=== PATIENT | male | born 2000 | race Two or more races ===

== ENCOUNTER 2024-03-02 01:55 | Inpatient (IN) | payer OTHER ==
[2024-03-02] VITALS (13 sets, daily range): BP systolic 102–133; BP diastolic 64–86; PULSE 65–100; RESP 17–18; TEMP 97.6–98.1; O2SAT 97–100
[~2024-03-02] VITALS: Ht 182.9 cm; Wt 72.6 kg
[2024-03-02] MEDS ORDERED: OLANZapine 5 MG RAPDIS TABLET PO PRN (02:30)
[2024-03-02] MEDS ORDERED: LORazepam 2 MG TABLET PO PRN (02:30)
[2024-03-02] MEDS ORDERED: ZOLPIDEM TARTRATE 10 MG TABLET PO PRN (02:30)
[2024-03-02 08:54] LABS: APPEARANCE,URINE CLEAR (CLEAR); BILIRUBIN,URINE NEGATIVE (NEGATIVE); COLOR,URINE LIGHT YELLOW (YELLOW); GLUCOSE, URINE (UA) NEGATIVE (NEGATIVE); KETONES,URINE NEGATIVE (NEGATIVE); LEUKOCYTE ESTERASE ,URINE NEGATIVE (NEGATIVE); NITRATE,URINE NEGATIVE (NEGATIVE); OCCULT BLOOD,URINE NEGATIVE (NEGATIVE); PH,URINE 5.5 (5.0-8.0); PH,URINE DRUG SCREEN 5.5 (5.0-8.0); PROTEIN,URINE NEGATIVE (NEGATIVE); SPECIFIC GRAVITIY, URINE 1.022 (1.003-1.030); UROBILINOGEN,URINE <=1.0 mg/dL (<=1.0)
[2024-03-02 09:10] LABS: ALCOHOL, URINE DRUG SCREEN NEGATIVE (NEGATIVE); AMPHET/METH SCREEN,URINE NEGATIVE (NEGATIVE); BARBITURATE SCREEN, URINE NEGATIVE (NEGATIVE); BENZODIAZEPINES SCREEN,URINE POSITIVE (NEGATIVE); CANNABINOID SCREEN,URINE NEGATIVE (NEGATIVE); COCAINE SCREEN,URINE POSITIVE (NEGATIVE); METHADONE SCREEN, URINE NEGATIVE (NEGATIVE); OPIATE SCREEN,URINE NEGATIVE (NEGATIVE); PHENCYCLIDINE SCREEN,URINE NEGATIVE (NEGATIVE)
[2024-03-02] MEDS ORDERED: LOPERAMIDE HCL 2 MG CAPSULE PO PRN (12:15)
[2024-03-02] MEDS ORDERED: HydrOXYzine PAMOATE 50 MG CAPSULE PO PRN (12:15)
[2024-03-02] MEDS ORDERED: GuaiFENesin/D-METHORPHAN [SUGAR-FREE] 200-20MG/10 ML SYRUP UDCUP PO PRN (12:15)
[2024-03-02] MEDS ORDERED: DIAZEPAM 10 MG TABLET PO PRN (12:15)
[2024-03-02] MEDS: CYANOCOBALAMIN 1,000 MCG/ML VIAL IM ONE (12:52)
[2024-03-02] MEDS: GABAPENTIN 300 MG CAPSULE PO SCH (12:53)
[2024-03-02] MEDS: THIAMINE 100 MG TABLET PO SCH (16:27)
[2024-03-02] MEDS: MELATONIN 5 MG TABLET PO SCH (20:30)
[2024-03-02] MEDS: MIRTAZAPINE 15 MG TABLET PO SCH (20:30)
[2024-03-02] MEDS: PRAZOSIN HCL 1 MG CAPSULE PO SCH (20:30)
[2024-03-03 02:30] VITALS: BP 105/65; PULSE 82; RESP 18; TEMP 97.6; O2SAT 98
[2024-03-03 06:30] VITALS: BP 118/69; PULSE 100; RESP 18; TEMP 97.7; O2SAT 100
[2024-03-03] MEDS ORDERED: LORazepam 2 MG TABLET PO PRN (07:00)
[2024-03-03] MEDS ORDERED: DIAZEPAM 10 MG TABLET PO PRN (07:00)
[2024-03-03] MEDS ORDERED: LORazepam 2 MG TABLET PO SCH (09:00)
[2024-03-03] MEDS: OMEGA-3/DHA/EPA/FISH OIL 1,000 MG CAPSULE PO SCH (09:03)
[2024-03-03] MEDS: FOLIC ACID 1 MG TABLET PO SCH (09:04)
[2024-03-03] MEDS: NALTREXONE HCL 50 MG TABLET PO SCH (09:04)
[2024-03-03] MEDS: MULTIVITAMINS WITH MINERALS, THERAPEUTIC TABLET PO SCH (09:04)
[2024-03-03] MEDS: DIAZEPAM 10 MG TABLET PO SCH (09:04)
[2024-03-03 09:05] VITALS: BP 117/66; PULSE 84; RESP 17; TEMP 97.7; O2SAT 99
[2024-03-03 09:52] LABS: BASOPHILS % (AUTO) 0.4 % (0.0-2.0); EOSINOPHILS % (AUTO) 5.3 % (1.0-6.0); HEMATOCRIT 39.5 % (41-53); LYMPHOCYTES # (AUTO) 1.1 K/uL (1.0-4.8); LYMPHOCYTES % (AUTO) 20.6 % (22.0-44.0); MEAN CORPUSCULAR HEMOGLOBIN 27.7 pg (26.0-34.0); MEAN CORPUSCULAR HGB CONC 32.9 G/dL (31.0-37.0); MEAN CORPUSCULAR VOLUME 84 fL (80-100); MONOCYTES # (AUTO) 0.6 K/uL (0.1-1.0); MONOCYTES % (AUTO) 11.3 % (2.0-9.0); NEUTROPHILS # (AUTO) 3.2 K/uL (1.8-7.7); NEUTROPHILS % (AUTO) 62.4 % (40.0-70.0); PLATELET COUNT (AUTO) 298 K/uL (150-450); RED BLOOD CELL COUNT(AUTO) 4.69 MIL/uL (4.50-5.90); RED CELL DISTRIBUTION WIDTH 13.2 % (11.5-14.5); WHITE BLOOD COUNT (AUTO) 5.2 K/uL (4.5-11.0)
[2024-03-03 10:22] VITALS: BP 117/66; PULSE 84; RESP 17; TEMP 97.7; O2SAT 99
[2024-03-03 10:49] LABS: ALANINE AMINOTRANSFERASE 19 U/L (12-78); ALBUMIN 3.2 g/dL (3.4-5.0); ALKALINE PHOSPHATASE 116 U/L (46-116); ANION GAP 3 mmol/L (8-16); ASPARTATE AMINOTRANSFERASE 23 U/L (15-37); BILIRUBIN,TOTAL 0.3 mg/dL (0.1-1.0); CALCIUM, TOTAL 9.1 mg/dL (8.8-10.5); CARBON DIOXIDE 33 mmol/L (22-29); CHLORIDE 103 mmol/L (98-107); CHOL/HDL RATIO 3.6 (4.2-7.3); CHOLESTEROL 174 mg/dL (131-200); CREATININE 0.93 mg/dL (0.60-1.30); FREE T4 (FREE THYROXINE) 0.63 ng/dL (0.76-1.46); GLOMERULAR FILTR. RATE CALC > 60 mL/min (>60); GLUCOSE,RANDOM 73 mg/dL (70-110); HDL CHOLESTEROL 48 mg/dL (40-60); LDL CHOL (CALC.) 102 mg/dL (0-130); POTASSIUM 4.4 mmol/L (3.5-5.1); SODIUM SERUM 139 mmol/L (136-145); T4 (THYROXINE) 5.4 mcg/dL (4.7-13.3); THYROID STIMULATING HORMONE 1.99 uIU/mL (0.36-3.74); TOTAL PROTEIN, SERUM 7.6 g/dL (6.4-8.2); TRIGLYCERIDES 122 mg/dL (15-150); UREA NITROGEN, BLOOD 15 mg/dL (7-18)
[2024-03-03 13:22] VITALS: BP 106/70; RESP 17; O2SAT 99
[2024-03-03 20:23] VITALS: BP 128/74; PULSE 83; RESP 17; TEMP 98.4; O2SAT 99
[2024-03-04 09:01] VITALS: BP 143/82; PULSE 85; RESP 18; TEMP 97.7; O2SAT 100
[2024-03-04] MEDS ORDERED: MIRT-89 PO (14:24)
[2024-03-04] MEDS ORDERED: PRAZ1 PO (14:24)
[2024-03-04] MEDS ORDERED: GABA-1181 PO (14:24)
[2024-03-04] MEDS ORDERED: NALT50TA33 PO (14:24)
[2024-03-04] MEDS ORDERED: MELA5TAB40 PO (14:24)
[2024-03-05] MEDS ORDERED: DIAZEPAM 5 MG TABLET PO PRN (07:00)
[2024-03-05] MEDS ORDERED: LORazepam 1 MG TABLET PO PRN (07:00)
[2024-03-05] MEDS ORDERED: DIAZEPAM 5 MG TABLET PO SCH (09:00)
[2024-03-05] MEDS ORDERED: LORazepam 1 MG TABLET PO SCH (09:00)
[2024-03-06] MEDS ORDERED: DIAZEPAM 5 MG TABLET PO PRN (07:00)
[2024-03-06] MEDS ORDERED: LORazepam 1 MG TABLET PO PRN (07:00)
== END 2024-03-04 17:44 | disposition home or self-care (01) | DRG 885 ==
LOC: B2S 02:44
PROVIDERS: ADMIT Psychiatry & Neurology Psychiatry; ATTEND Psychiatry & Neurology Psychiatry
PROC: GZHZZZZ Group Psychotherapy (ICD-10-PCS; principal; 2024-03-03)
PROC: GZ58ZZZ Individual Psychotherapy, Cognitive-Behavioral (ICD-10-PCS; 2024-03-03)
DX: F25.9 Schizoaffective disorder, unspecified (principal); R45.851 Suicidal ideations; Z59.00 Homelessness unspecified; Z87.828 Personal history of other (healed) physical injury and trauma; F17.200 Nicotine dependence, unspecified, uncomplicated; F43.10 Post-traumatic stress disorder, unspecified; G40.409 Other generalized epilepsy and epileptic syndromes, not intractable, without status epilepticus; Z91.199 Patient's noncompliance with other medical treatment and regimen due to unspecified reason; Z91.011 Allergy to milk products
CPT/HCPCS: 80053; 80061; 80307; 81003; 84436; 84439; 84443; 85025; 86592; G0480; J3420; Q9967